=== PATIENT | male | born 1980 | race Caucasian/White ===

== ENCOUNTER 2024-11-26 17:57 | Inpatient (IN) | payer MEDICAID ==
[~2024-11-26] VITALS: Ht 185.4 cm; Wt 65.3 kg
[2024-11-26] MEDS: KETOROLAC 15MG/ML VIAL IV ONE (19:46)
[2024-11-26 21:27] LABS: CHLORIDE 99 mEq/L (98-107); POTASSIUM 3.7 mEq/L (3.5-5.1); SODIUM 136 mEq/L (136-145)
[2024-11-26 21:28] LABS: CARBON DIOXIDE 28 mEq/L (21-32)
[2024-11-26 21:29] LABS: CALCIUM 10.2 mg/dL (8.7-10.4)
[2024-11-26 21:33] LABS: CREATININE 0.9 mg/dL (0.6-1.3); GLUCOSE 69 mg/dL (70-105)
[2024-11-26 21:34] LABS: UREA NITROGEN BLOOD 11 mg/dL (9-23)
[2024-11-26 21:35] LABS: ALANINE AMINOTRANSFERASE 155 IU/L (10-49); ALBUMIN 4.9 g/dL (3.2-4.8); ASPARTATE AMINOTRANSFERASE 125 IU/L (<34)
[2024-11-26] MEDS ORDERED: NA P133E4 RC (21:35)
[2024-11-26] MEDS ORDERED: POLY17PO3 MT (21:35)
[2024-11-26 21:36] LABS: BILIRUBIN DIRECT 0.2 mg/dL (<=3.0); BILIRUBIN TOTAL 0.7 mg/dL (0.1-1.0); PROTEIN TOTAL 8.4 g/dL (6.0-8.3)
[2024-11-26 22:13] LABS: BASOPHILS % 0.4 % (0.0-2.0); HEMATOCRIT. 46.1 % (42.0-52.0); HEMOGLOBIN. 15.6 g/dL (14.0-18.0); LYMPHOCYTES % 51.3 % (20.0-50.0); MEAN CORPUSCULAR HEMOGLOBIN 29.6 pg (28.0-32.0); MEAN CORPUSCULAR HGB CONC 33.9 g/dL (31.0-37.0); MEAN CORPUSCULAR VOLUME 87.3 fL (80.0-94.0); MONOCYTES % 4.6 % (2.0-8.0); NEUTROPHILS % 40.7 % (40.0-76.0); PLATELET 219 x1000/uL (130-400); RED BLOOD CELL COUNT 5.28 mill/uL (4.7-6.1); RED CELL DISTRIBUTION WIDTH 12.8 % (11.6-14.6); WHITE BLOOD COUNT 6.3 x1000/uL (4.5-11.0)
[2024-11-26] MEDS ORDERED: IOHEXOL-300 100 ML BOTTLE ONE (23:23)
[2024-11-27] MEDS: LORAZEPAM 0.5MG TABLET PO ONE (04:08)
[2024-11-27 05:00] VITALS: BP 108/63; PULSE 50; RESP 16; TEMP 36.3
[2024-11-27 06:19] LABS: CLARITY URINE CLEAR (CLEAR); COLOR URINE YELLOW (YELLOW); GLUCOSE URINE NEGATIVE (NEGATIVE); KETONES URINE NEGATIVE (NEGATIVE); LEUKOCYTE ESTERASE URINE NEGATIVE (NEGATIVE); NITRITE URINE NEGATIVE (NEGATIVE); OCCULT BLOOD URINE NEGATIVE (NEGATIVE); PH URINE 5.5 (4.5-8.0); PROTEIN URINE NEGATIVE (NEGATIVE); SPECIFIC GRAVITY URINE 1.063 (1.005-1.030); UROBILINOGEN URINE 0.2 E.U./dL (0.2-1.0)
[2024-11-27 08:00] VITALS: BP 114/73; PULSE 60; PULSE 78; RESP 18; RESP 19; TEMP 36.3; TEMP 36.7; O2SAT 99
[2024-11-27] MEDS: ENOXAPARIN 40MG/0.4ML SYR SUBCUT SCH (09:00)
[2024-11-27] MEDS ORDERED: ONDANSETRON HCL 4MG/2ML INJ IV PRN (09:00)
[2024-11-27] MEDS ORDERED: ACETAMINOPHEN 325MG TABLET PO PRN (09:00)
[2024-11-27] MEDS ORDERED: CLONIDINE 0.1MG TABLET PO PRN (09:00)
[2024-11-27] MEDS: PANTOPRAZOLE SODIUM 40 MG/VIAL IV SCH (09:00)
[2024-11-27] MEDS ORDERED: NALOXONE HCL 0.4MG/ML VIAL IV PRN (09:00)
[2024-11-27] MEDS: SODIUM CHLORIDE 0.9% 1,000 ML IV SCH (09:00)
[2024-11-27] MEDS ORDERED: MORPHINE SULFATE 2 MG/ML INJ (NOT FOR IM USE) IV PRN (09:00)
[2024-11-27] MEDS: CEFTRIAXONE 1GM/50ML 50 ML IV SCH (09:00)
[2024-11-27 12:00] VITALS: BP 121/66; PULSE 57; RESP 19; TEMP 36.4; O2SAT 99
[2024-11-27] MEDS ORDERED: LORAZEPAM 2MG/ML INJ IV PRN (14:15)
[2024-11-27] MEDS: LITHIUM CARBONATE 150 MG CAPSULE PO SCH (15:00)
[2024-11-27 16:00] VITALS: BP 123/70; PULSE 67; RESP 19; TEMP 36.3; O2SAT 98
[2024-11-27] MEDS: BUPRENORPHINE 2MG SL TABLET SL SCH (17:00)
[2024-11-27] MEDS ORDERED: BUPRENORPHINE 8MG SL TABLET SL SCH (17:00)
[2024-11-27 20:30] VITALS: BP 110/70; PULSE 77; RESP 18; TEMP 36.6; O2SAT 97
[2024-11-27] MEDS: METRONIDAZOLE 500 MG PREMIX 100 ML IV SCH (21:04)
[2024-11-27] MEDS: CLONAZEPAM 1MG TABLET PO SCH (21:05)
[2024-11-27] MEDS: POLYETHYLENE GLYCOL 3350 (17GM) 1 DOSE PACK PO SCH (21:05)
[2024-11-27] MEDS: DOCUSATE SODIUM 100MG CAPSULE PO SCH (21:05)
[2024-11-27] MEDS: HYDROCORTISONE 1% RECTAL CREAM 30GM PR SCH (21:05)
[2024-11-27] MEDS: LACTULOSE 20G/30ML UDC PO SCH (21:10)
[2024-11-28] VITALS: BP 109/70; PULSE 69; RESP 17; TEMP 36.4; O2SAT 98
[2024-11-28 04:00] VITALS: BP 94/59; PULSE 60; RESP 14; TEMP 37; O2SAT 96
[2024-11-28 08:00] VITALS: BP 117/79; PULSE 60; RESP 20; TEMP 36.3; O2SAT 100
[2024-11-28] MEDS ORDERED: BUPRENORPHINE 2MG SL TABLET SL SCH (09:00)
[2024-11-28] MEDS: NA PHOS,M-B/NA PHOS,DI-BA ENEMA 118ML PR SCH (10:15)
[2024-11-28] MEDS: BUPRENORPHINE 8MG SL TABLET SL SCH (10:15)
[2024-11-28] MEDS: CLONAZEPAM 1MG TABLET PO PRN (10:33)
[2024-11-28 12:00] VITALS: BP 113/63; PULSE 55; RESP 20; TEMP 36.9; O2SAT 100
[2024-11-28 14:15] LABS: *AMPHETAMINES SCREEN URINE NEGATIVE (NEGATIVE)
[2024-11-28 14:16] LABS: *BARBITURATES SCREEN URINE NEGATIVE (NEGATIVE); *BENZODIAZEPINES SCREEN URINE NEGATIVE (NEGATIVE); *COCAINE SCREEN URINE NEGATIVE (NEGATIVE); CANNABINOID URINE SCREEN NEGATIVE (NEGATIVE); ECSTASY MDMA SCREEN URINE NEGATIVE (NEGATIVE); METHADONE URINE SCREEN NEGATIVE (NEGATIVE); OPIATES URINE SCREEN NEGATIVE (NEGATIVE); PHENCYCLIDINE URINE SCREEN NEGATIVE (NEGATIVE)
[2024-11-28 16:00] VITALS: BP 103/61; PULSE 56; RESP 18; TEMP 36.8; O2SAT 100
[2024-11-28 20:00] VITALS: BP 103/61; PULSE 54; RESP 18; TEMP 36.4; O2SAT 100
[2024-11-29] VITALS (7 sets, daily range): BP systolic 105–140; BP diastolic 52–68; PULSE 56–72; RESP 16–20; TEMP 36.2–36.6; O2SAT 96–100
[2024-11-29] MEDS: METRONIDAZOLE 500MG TABLET PO SCH (15:00)
[2024-11-29 16:21] LABS: BASOPHILS % 0.4 % (0.0-2.0); EOSINOPHILS % 5.6 % (0.0-5.0); HEMATOCRIT. 45.6 % (42.0-52.0); HEMOGLOBIN. 14.8 g/dL (14.0-18.0); MEAN CORPUSCULAR HGB CONC 32.5 g/dL (31.0-37.0); MEAN CORPUSCULAR VOLUME 92.4 fL (80.0-94.0); MEAN PLATELET VOLUME 8.1 fl (7.4-10.4); MONOCYTES % 5.7 % (2.0-8.0); NEUTROPHILS % 47.3 % (40.0-76.0); PLATELET 155 x1000/uL (130-400); RED BLOOD CELL COUNT 4.94 mill/uL (4.7-6.1); RED CELL DISTRIBUTION WIDTH 13.6 % (11.6-14.6)
[2024-11-29 16:34] LABS: CHLORIDE 105 mEq/L (98-107); POTASSIUM 4.2 mEq/L (3.5-5.1); SODIUM 140 mEq/L (136-145)
[2024-11-29 16:35] LABS: CARBON DIOXIDE 25 mEq/L (21-32)
[2024-11-29 16:36] LABS: CALCIUM 9.9 mg/dL (8.7-10.4)
[2024-11-29 16:40] LABS: CREATININE 0.7 mg/dL (0.6-1.3)
[2024-11-29 16:41] LABS: GLUCOSE 74 mg/dL (70-105); UREA NITROGEN BLOOD 9 mg/dL (9-23)
[2024-11-29 16:42] LABS: ALANINE AMINOTRANSFERASE 71 IU/L (10-49); ALBUMIN 4.2 g/dL (3.2-4.8); ASPARTATE AMINOTRANSFERASE 35 IU/L (<34)
[2024-11-29 16:43] LABS: BILIRUBIN DIRECT 0.2 mg/dL (<=3.0); BILIRUBIN TOTAL 0.5 mg/dL (0.1-1.0); PROTEIN TOTAL 7.5 g/dL (6.0-8.3)
[2024-11-29] MEDS: HYDROCODONE/ACETAMINOPHEN 5/325MG TABLET PO PRN (20:45)
[2024-11-29] MEDS: ZOLPIDEM TARTRATE 5MG TABLET PO PRN (20:52)
[2024-11-30] VITALS: BP 105/66; PULSE 81; RESP 18; TEMP 36.4; O2SAT 100
[2024-11-30 04:00] VITALS: BP 104/62; PULSE 56; RESP 18; TEMP 36.4; O2SAT 96
[2024-11-30 08:00] VITALS: BP 116/71; PULSE 50; RESP 18; TEMP 36.2; O2SAT 100
[2024-11-30 20:00] VITALS: BP 108/63; PULSE 53; RESP 19; TEMP 36.9; O2SAT 100
[2024-12-01] VITALS: BP 100/60; PULSE 69; RESP 15; TEMP 36.3; O2SAT 100
[2024-12-01 04:17] VITALS: O2SAT 100
[2024-12-01 08:00] VITALS: BP 107/70; PULSE 52; RESP 20; TEMP 36.4; O2SAT 98
[2024-12-01 12:00] VITALS: BP 106/53; PULSE 53; RESP 16; TEMP 37; O2SAT 99
[2024-12-01 16:00] VITALS: BP 113/69; PULSE 54; RESP 17; TEMP 36.3; O2SAT 100
[2024-12-01 20:00] VITALS: BP 108/66; PULSE 73; RESP 18; TEMP 36.5; O2SAT 100
[2024-12-02] VITALS: BP 108/60; PULSE 61; RESP 19; TEMP 36.4; O2SAT 100
[2024-12-02 04:00] VITALS: BP 97/57; PULSE 68; RESP 18; TEMP 36.4; O2SAT 100
[2024-12-02 08:00] VITALS: BP 121/82; PULSE 65; RESP 20; TEMP 36.6; O2SAT 100
[2024-12-02 09:58] VITALS: BP 97/57; PULSE 68; TEMP 98.8; O2SAT 100
[2024-12-02] MEDS ORDERED: BUPR2TAB SL (11:29)
[2024-12-02] MEDS ORDERED: CLON1TAB12 PO (11:29)
[2024-12-02] MEDS ORDERED: BUPR8TAB3 SL (11:29)
[2024-12-02] MEDS ORDERED: LACT10SO7 PO (11:29)
[2024-12-02] MEDS ORDERED: DOCU-422 PO (11:29)
[2024-12-02] MEDS ORDERED: LITH150C PO (11:29)
[2024-12-02 12:00] VITALS: BP 106/68; PULSE 82; RESP 20; TEMP 36.9; O2SAT 100
== END 2024-12-02 14:11 | disposition home or self-care (01) | DRG 254 ==
LOC: ER 17:57 → 5WST 11-27 01:13 → EDBEDREQ 11-27 03:19 → EDBEDREQDT 11-27 03:19 → EDBEDREQTM 11-27 03:19 → 7EST 11-27 20:30
PROVIDERS: ADMIT Internal Medicine; ATTEND Internal Medicine
PROC: GZ56ZZZ Individual Psychotherapy, Supportive (ICD-10-PCS; principal; 2024-11-30)
DX: K59.09 Other constipation (principal); F11.11 Opioid abuse, in remission; K52.9 Noninfective gastroenteritis and colitis, unspecified; F31.9 Bipolar disorder, unspecified; F20.9 Schizophrenia, unspecified; R74.01 Elevation of levels of liver transaminase levels; F41.9 Anxiety disorder, unspecified; Z59.00 Homelessness unspecified; Z90.49 Acquired absence of other specified parts of digestive tract; Z86.711 Personal history of pulmonary embolism
CPT/HCPCS: 36415; 74018; 74177; 80048; 80076; 80305; 81003; 85025; 85044; 86850; 86900; 93970; 97161; 99285; J0696; J1650; J1885; J2470; J3490; J7030; Q9967

== ENCOUNTER 2024-12-09 14:08 | Emergency (ER) | payer MEDICAID ==
[~2024-12-09] VITALS: Ht 177.8 cm; Wt 80.0 kg
[~2024-12-09 14:08] MED LIST: BUPR2TAB SL; BUPR8TAB3 SL; CLON1TAB12 PO; DOCU-422 PO; LACT10SO7 PO; LITH150C PO; NA P133E4 RC; POLY17PO3 MT
[2024-12-09 14:14] VITALS: BP 110/64; PULSE 68; RESP 16; TEMP 36.9; O2SAT 99
== END 2024-12-09 18:29 | disposition left against medical advice (07) ==
LOC: ER 14:08
DX: R10.84 Generalized abdominal pain (principal); Z53.21 Procedure and treatment not carried out due to patient leaving prior to being seen by health care provider